=== PATIENT | female | born 1965 | race Caucasian/White ===

== ENCOUNTER 2017-02-09 17:41 | Emergency (ER) | payer MEDICAID, OTHER ==
[~2017-02-09] VITALS: Ht 172.7 cm; Wt 53.6 kg
[2017-02-09 17:48] VITALS: BP 130/88; PULSE 56; RESP 15; O2SAT 96
[2017-02-09 18:21] LABS: BASOPHILS % (AUTO) 0.2 % (0-3); EOSINOPHILS % (AUTO) 0.6 % (0-5); Mean Corpuscular Hemoglobin 31.6 pg (27.0-35.0); Mean Corpuscular Volume 100.2 fL (81-100); NEUTROPHILS % (AUTO) 73.7 % (40-74); Platelet Count 198 bil/L (150-400)
[2017-02-09 18:43] LABS: Magnesium 2.1 mg/dL (1.6-2.6)
== END 2017-02-09 19:42 | disposition left against medical advice (07) ==
LOC: SED 17:41
DX: R10.9 Unspecified abdominal pain (principal); Z53.21 Procedure and treatment not carried out due to patient leaving prior to being seen by health care provider